=== PATIENT | male | born 1975 | race Caucasian/White ===

== ENCOUNTER 2018-12-21 19:09 | Emergency (ER) | payer BC ==
[~2018-12-21] VITALS: Ht 170.2 cm; Wt 100.0 kg
[~2018-12-21 19:09] MED LIST: NORCO 325 MG-51 TAB PO; PRILOTC PO; PROAIR HFA0.09 MG/AC IH; ZOFRAN 4MG T4 MG/TAB PO
[2018-12-21 19:25] VITALS: TEMP 99.6
[2018-12-21] MEDS ORDERED: NORCO 325 MG-51 TAB PO (22:20)
[2018-12-21] MEDS ORDERED: CRUTCHES MC (22:29)
[2018-12-21 23:06] VITALS: BP 125/89; PULSE 88
== END 2018-12-21 23:06 | disposition home or self-care (01) ==
LOC: COL.ER 19:09
DX: S92.232A Displaced fracture of intermediate cuneiform of left foot, initial encounter for closed fracture (principal); S92.222A Displaced fracture of lateral cuneiform of left foot, initial encounter for closed fracture; S92.212A Displaced fracture of cuboid bone of left foot, initial encounter for closed fracture; S92.342A Displaced fracture of fourth metatarsal bone, left foot, initial encounter for closed fracture; W55.29XA Other contact with cow, initial encounter; Y92.73 Farm field as the place of occurrence of the external cause
CPT/HCPCS: Q4041

== ENCOUNTER 2020-01-17 11:02 | Inpatient (IN) | payer BC ==
[~2020-01-17] VITALS: Ht 170.2 cm; Wt 88.9 kg
[~2020-01-17 11:02] MED LIST changes: +CRUTCHES MC; +MUCINEX 60600 MG/TA1 PO; +TESSALON P100 MG/CAP PO; +ZITHROMAX 250M250 MG PO
[2020-01-17] MEDS ORDERED: ABSORBASE TOP (11:28)
[2020-01-17] MEDS ORDERED: TYLENOL 325MG325 MG PO (11:33)
[2020-01-17] MEDS ORDERED: ELIQUIS 5MG PO ×2 (11:33→11:34)
[2020-01-17] MEDS ORDERED: BUSPAR5 MG PO (11:35)
[2020-01-17] MEDS ORDERED: DULCOLAX STOOL100 MG PO ×2 (11:36→11:37)
[2020-01-17] MEDS ORDERED: MUCINEX 60600 MG/TA1 PO (11:38)
[2020-01-17] MEDS ORDERED: ATROVENT I0.2 MG/1 M IH (11:39)
[2020-01-17] MEDS ORDERED: MELATONIN3 M1 PO (11:40)
[2020-01-17] MEDS ORDERED: PROTONIX 40MG T40 MG PO (11:41)
[2020-01-17 16:51] VITALS: BP 122/84; PULSE 104; TEMP 98.8
[2020-01-17 18:00] VITALS: BP 122/84; PULSE 104; TEMP 98.8
--- NOTE | 2020-01-17 19:50 | NUR ---
bedside shift report received from BRENNON Puente
--- NOTE | 2020-01-17 20:37 | NUR ---
Patient arrived to [facility] approximatly 1:30 PM, but stayed outside to talk to family before entering the hospital. Patient was admitted to Room 335 at 1500. Patient currently resting in bed at this time, call light in reach and bed alarm set.
--- NOTE | 2020-01-17 21:15 | NUR ---
watching TV, is very talkative and states he is very bored and is ready to be home with his family, listened and spoke with and tried to be encouraging, full assessment completed, see interventions for further info, trach in place with dressing, PEG tube in place with some dried blood around stoma, denies pain or needs, refuses buspar
--- NOTE | 2020-01-17 22:20 | NUR ---
in bed with lights on but appears to be sleeping, resp quiet and easy
--- NOTE | 2020-01-17 23:20 | NUR ---
continues to appear to sleep
--- NOTE | 2020-01-18 00:25 | NUR ---
shift report given to BRENNON Stone
[2020-01-18 05:27] VITALS: BP 120/86; PULSE 96; TEMP 97.7
--- NOTE | 2020-01-18 09:25 | NUR ---
PATIENT RETURNS FROM PT THIS MORNING AND ASSESSMENT COMPLETED. HE DENIES ANY NEED FOR PAIN MEDICATIONS. HE DOES HAVE SOME NOTICABLE HAND TREMORS. HE IS VERY TALKATIVE. IS SLIGHTLY SHORT OF BREATH WITH ACTIVITY AND SOME WITH TALKING.
--- NOTE | 2020-01-18 15:14 | NUR ---
TRACH TUBE REMOVED BY PHYS PRIOR TO RT ARRIVAL. PT AWAKE, ALERT AND SPEAKING TO AND FAMILY ON THE PHONE. O2 ON @ 2 LPM NC.
--- NOTE | 2020-01-18 16:00 | NUR ---
PATIENT IS VERY EXCITED ABOUT HAVING TRACHE REMOVED. GAUZE AND TAPE WAS APPLIED OVER THE TRACHE SITE. DENIES ANY PAIN OR NEEDS AT THIS TIME.
[2020-01-18 17:27] VITALS: BP 128/88; PULSE 98; TEMP 98.5
--- NOTE | 2020-01-18 19:56 | NUR ---
IN TO ASSESS PATIENT AND HE DECLINED HIS BUSPAR. TRACH SITE DRESSING WAS CHANGED. WHOLE IS ABOUT A SIZE OF A SMASHED DIME AND THE DRAINAGE WAS YELLOW/MUCOUS COLORED AND ABOUT A QUARTER IN SIZE.
--- NOTE | 2020-01-19 05:24 | NUR ---
PATIENT HAD A COUPLE OF PHONE CALLS FROM FAMILY MEMBERS AT HS TIME. NO ABNORMAL FINDINGS WERE NOTED ON ASSESSMENT. TRACH DRESSING WAS CHANGED WITH A QUARTER SIZE AMOUNT OF YELLOW/GREEN/MUCOUS DRAINAGE NOTED ON THE OLD DRESSING. A NEW DRESSING WAS APPLIED. PATIENT WENT UP TO THE BATHROOM AND THEN WENT TO WENT. PATIENT HAS BEEN OBERSEVERED SEVERAL TIMES DURING THE NIGHT SLEEPING IN HIS BED. PATIENT DENIES ANY OTHER NEEDS AT THIS TIME. WILL REPORT OFF TO DAY SHIFT UPON THEIR ARRIVAL
[2020-01-19 05:43] VITALS: BP 103/63; PULSE 93; TEMP 97.9
--- NOTE | 2020-01-19 06:57 | NUR ---
resting in bed, bedside shift report received from BRENNON Maldonado
--- NOTE | 2020-01-19 08:24 | NUR ---
up in WC watching TV, full assessment completed, see interventions for further info, assisted over to recliner, denies needs
--- NOTE | 2020-01-19 10:00 | NUR ---
dressing removed from trach site, small amount yellowish drainage on gauze, skin cleansed with normal saline and new gauze placed and held in place with paper tape,
--- NOTE | 2020-01-19 14:21 | NUR ---
SW met with patient in doorway of patient's room to [facility]. Patient que resides in [facility] with his Abida [phone] as care support, and EMR. PAtient also reported his as DPOA. Patient reports that he does not currently utilize DME, and that his PCP is Dr. Mancera, with no upcoming appointments. Patient reports that he gets his medications from [facility] in [place] with no concerns. Patient declined home health services at this time, however indicated that he may need oxygen. SW discussed situation with nurse, and determine this had not been addressed. SW will continue to follow.
--- NOTE | 2020-01-19 17:18 | NUR ---
has been up in recliner and in bed throughtout the day, up to bathroom and voids qs, has denied needs throughout the day
[2020-01-19 17:42] VITALS: BP 125/85; PULSE 109; TEMP 98.7
--- NOTE | 2020-01-19 18:40 | NUR ---
Pt REPORT RECEIVED AT BEDSIDE FROM MENDEZ WILLETT. Pt HAS CALL LIGHT WITHIN REACH AND DENIES PAIN OR WANTS/NEEDS AT THIS TIME. WILL CONTINUE TO MONITOR.
--- NOTE | 2020-01-19 18:45 | NUR ---
bedside shift report given to BRENNON Downey
--- NOTE | 2020-01-19 23:09 | NUR ---
Pt has spent the evening resting in bed and communicating with his friends and family via [facility], as well as watching tv in between calls. Pt is A&Ox4 and is able to express his wants/needs without difficulty. Pt is independent in his room and performs all personal care and transfers independantly. Call light is within Pt reach and there are beverages and personal items within reach on the bedside table. Pt has been cooperative with care and compliant with medications except for his Buspar which he refused even after education provided regarding it's use. Pt remains in stable condition at this time with no s/s of distress noted. Pt dressing to his anterior neck is CDI and the skin around his G-tube site is noted as CDI with no redness, drainage, or excoriation. Will continue to monitor.
--- NOTE | 2020-01-20 02:43 | NUR ---
Pt is currently resting in bed with eyes closed and no s/s of distress noted. Call light is at Pt side. Pt has been resting peacefully since HS and remains compliant with use of call light with one episode of using call light to notify this engineering writer that he needed to use the restroom to void. Will continue to monitor.
[2020-01-20 05:06] VITALS: BP 133/88; PULSE 105; TEMP 97.4
[2020-01-20 06:58] LABS: ALBUMIN 3.9 gm/dL (3.5-5.0); BILIRUBIN,TOTAL 0.4 mg/dL (0.0-1.0); CALCIUM 9.3 mg/dL (8.4-10.2); CREATININE, serum 0.63 (0.66-1.25); MAGNESIUM 1.9 mg/dL (1.6-2.3); POTASSIUM 3.9 mmol/L (3.4-5.0); TOTAL PROTEIN 6.9 gm/dL (6.4-8.2)
[2020-01-20 07:00] LABS: BASO % 0.4 % (0.0-2.0); EOS # 0.1 (0.0-0.7); EOS % 1.7 % (0-4.0); GRAN # 4.9 (1.4-6.5); GRAN % 63.4 % (42.2-75.2); HEMOGLOBIN 11.6 g/dl (13.5-18.0); LYMPH # 2.2 (1.2-3.4); LYMPH % 28.5 % (20.0-51.0); MEAN CELL VOLUME 89 fl (80.0-100.0); MEAN CORPUSCULAR HEMOGLOBIN 29 pg (27.0-31.0); MEAN CORPUSCULAR HGB CONC 33 g/dl (33.0-37.0); MEAN PLATELET VOLUME 9.8 fl (7.4-10.4); MONO # 0.4 (0.1-0.6); MONO % 5.5 % (1.7-9.3); PLATELET COUNT 282 K/mm3 (130-400); RED BLOOD COUNT 3.96 M/mm3 (4.20-5.60); REDCELL DISTRIBUTION WIDTH-CV 14.4 % (11.5-14.5)
[2020-01-20 07:09] LABS: HEMATOCRIT 35.4 % (42.0-52.0)
--- NOTE | 2020-01-20 09:23 | NUR ---
PATIENT IS UP IN THE WHEELCHAIR ATTENDING TO PERSONAL HYGIENE AT THE SINK THIS MORNING. PATIENT IS A&OX4. VSS. BOWEL SOUNDS ACTIVE ALL FOUR QUADRANTS. PATIENT PASSING FLATUS. PEG TUBE TO ABDOMEN CLAMPED. SKIN CD&I AROUND PEG TUBE SITE. OLD TRACH SITE ON NECK DRESSED WITH A GAUZE AND TAPE DRESSING AND IS CD&I. ALL LUNG PEREZ CLEAR UPON AUSCULTATION. PATIENT STATES THAT HE FEELS SOB ALL THE TIME BUT THAT IT IS WORSE WITH ACTIVITY. 02 AT 2L VIA NASAL CANNULA IN PLACE. POSITIVE PEDAL PULSES EQUAL BILATERALLY. PATIENT DENIES PAIN THIS MORNING. NO NEEDS AT THIS TIME.
--- NOTE | 2020-01-20 12:27 | NUR ---
PATIENTS OLD TRACH SITE ON NECK EDGES WELL APPROXIMATED. COVERED WITH GAUZE AND PAPER TAPE DRESSING. PATIENT DENIES PAIN. NO OTHER NEEDS AT THIS TIME.
--- NOTE | 2020-01-20 13:16 | NUR ---
Admission QIM scores were reviewed by the team. Code of 3 for toilet transfers was determined by team discussion to be the most usual performance before interventions for this patient during the assessment period.--PD Demi
--- NOTE | 2020-01-20 13:51 | NUR ---
PATIENTS PEG TUBE FLUSHED WITH 70 MLS OF WARM WATER. PATIENT TOLERATED WELL. NO NEEDS AT THIS TIME.
[2020-01-20 17:04] VITALS: BP 117/91; PULSE 105; TEMP 99
--- NOTE | 2020-01-20 18:35 | NUR ---
REPORT GIVEN TO BRENNON YANEZ.
--- NOTE | 2020-01-20 20:42 | NUR ---
PT IN RECLINER AND DENIES ANY PAIN OR DISCOMFORT AT THIS TIME. DRSG TO NECK CHANGED, INCISION HAD NO DRAINAGE. PT ADVISES THAT HE DID NOT WANT BURSPAR. PT STILL ON 2L/NC AND RESP EVEN AND UNLABORED. CALL LIGHT WITHIN REACH.
--- NOTE | 2020-01-21 04:08 | NUR ---
PT INDEPENDENT IN ROOM. PT WENT TO SLEEP ABOUT 2300 AND HAS BEEN SLEEPING/RESTING WELL SINCE THEN. NO CHANGES OR ISSUES NOTED. CALL LIGHT WITHIN REACH.
[2020-01-21 04:43] VITALS: BP 118/83; PULSE 90; TEMP 98.2
--- NOTE | 2020-01-21 09:44 | NUR ---
Patient attending therapy at this time. Patient very shaky still when standing for very long. Very shaky when trying to write with right hand. Patient refused pain meds this morning, but did agree to take some following his therapies today.
--- NOTE | 2020-01-21 13:30 | NUR ---
Contacted pt's , [place]. Informed her that we have permission to do a family visit tomorrow. Asked her if 1:00 pm would work for them, which she said it would. Inquired about face masks, which they have their own. Told her once she arrives we will take her & the kids to the courtyard & will bring [place] down for them to visit there. She was very pleased w/ this. Told her we would still do the Family Meeting at 1:45 pm as the team would come to the courtyard where they are. She again was fine w/ this plan.
[2020-01-21 15:54] VITALS: BP 121/81; PULSE 109; TEMP 98.7
--- NOTE | 2020-01-21 19:30 | NUR ---
Patient resting in recliner at this time. He is independent in his room. Patient attended all therapies today. Discussed discharge planning with patient and all follow up appointments have been made. Exercise Oximetry has been scheduled for afternoon. Patient had a shower today and dressing to old trache site was cleaned patted dry and secured with sterile gauze and paper tape. No open areas were observed today. Peg tube had some scant brown drainage and area was cleansed with normal saline and patted dry. See new order for 30 ml flush to peg tube BID instead of 60 ml per patient request. Peg tube flushes well. Patient denied any questions at this time. Reported off to night nurse.
--- NOTE | 2020-01-21 21:25 | NUR ---
PATIENT DOING WELL TONIGHT. DENIES PAIN. TRACHE SITE CDI. PEG TUBE CDI WITH NO DRESSING. TOOK SCHEDULED MEDICATIONS WITHOUT ISSUE. REFUSED BUSPAR. DENIES ANY OTHER NEEDS, WILL CONTINUE TO MONITOR. CALL LIGHT IN REACH.
[2020-01-22 05:42] VITALS: BP 124/84; PULSE 91; TEMP 98.4
--- NOTE | 2020-01-22 10:58 | NUR ---
YOLANDA met with the patient to discuss outpatient physical therapy options. SW provided a list of [place] facilities that provide outpatient PT and discussed the [facility] in [place]. The patient would like to discuss options with his . Will continue to follow.
[2020-01-22 15:51] VITALS: BP 123/70; PULSE 124; TEMP 98.8
--- NOTE | 2020-01-22 16:44 | NUR ---
YOLANDA met with the patient and provided the Team Conference notes. The patient will have a decision about where he wants to do his outpatient physical therapy with an [facility] and will advise YOLANDA which one tomorrow, 01/21. All questions and concerns were addressed. Will continue to follow.
--- NOTE | 2020-01-22 20:45 | NUR ---
Patient attended all therapies today. Denied pain this shift. Tolerated diet well. Appointment was made for ENT today and has been set for 02/12/20 at 8:[address] Su. This nurse called and left a message for [facility] and they will return the call tomorrow. At that time patient will need to have the Sleep Study set up. Dr. Gutiérrez has requested a copy of the Echo results from [facility] be faxed to us. This nurse reported off to the night nurse to have the day nurse take care of this tomorrow. Patient had his peg tube flushed this morning and patient reported that he is aware of how to flush his peg tube himself. Scant brown drainage was found around peg tube site. Trache dressing is Clean Dry and Intact. Patient in a pleasent mood this evening following his time with family this afternoon. He is currently resting in bed, independent in his room and denies questions at this time.
--- NOTE | 2020-01-22 22:39 | NUR ---
PATIENT DOING WELL TONIGHT. ALERT AND ORIENTED. DENIES PAIN. TOOK SCHEDULED MEDICATIONS WITHOUT ISSUE, REFUSED BUSPAR. TRACH DRESSING CDI. THIS NURSE OBSERVED PATIENT FLUSH PEG TUBE BY HIMSELF CORRECTLY. SCANT AMOUNT OF BROWN DRAINAGE NOTED AROUND PEG TUBE SITE, THIS WAS CLEANED BY THIS NURSE WITH GUAZE AND STERILE WATER. NO FURTHER NEEDS AT THIS TIME, PATIENT CURRENTLY RESTING IN BED, CALL LIGHT WITHIN REACH. WILL CONTINUE TO MONITOR.
[2020-01-23 03:46] VITALS: BP 104/71; PULSE 100; TEMP 98
--- NOTE | 2020-01-23 07:40 | NUR ---
PATIENT IS DROWSY THIS MORNING BUT A&OX4. TACHYCARDIA NOTED, VSS. PATIENT STATES THAT HE FEELS SOB ALL THE TIME BUT THAT IT IS WORSE WITH ACTIVITY. BOWEL SOUNDS ACTIVE ALL FOUR QUADRANTS. PATIENT TOLERATING DIET WITHOUT COMPLAINTS OF N/V. PEG TUBE TO ABDOMEN CLAMPED. PEG TUBE FLUSHED WITH 30 MLS OF WARM WATER. PATIENT TOLERATED WELL. OLD TRACH SITE INCISION TO NECK JOSE WITH SCANT DRIED DRAINAGE PRESENT ON NECK. EDGES WELL APPROXIMATED. PATIENT DENIES ANY PAIN. CALL LIGHT WITHIN REACH. NO OTHER NEEDS AT THIS TIME.
--- NOTE | 2020-01-23 16:22 | NUR ---
YOLANDA met with the patient regarding outpatient PT and he states he would like to stay with an [facility] but has not yet chosen. Will follow up with his choice tomorrow 01/22. The patient had a RT Exercise Oximetry and he is requiring oxygen. YOLANDA faxed order to [facility]. YOLANDA will continue to follow.
[2020-01-23 18:02] VITALS: BP 126/67; PULSE 117; TEMP 98.7
--- NOTE | 2020-01-23 18:45 | NUR ---
REPORT GIVEN TO BRENNON TALLEY.
--- NOTE | 2020-01-23 19:15 | NUR ---
PER NURSE REPORT, LAST HAD BM ON 01/21.
--- NOTE | 2020-01-23 19:15 | NUR ---
PATIENT UP IN CHAIR DURING CHANGE OF SHIFT REPORT FROM DAY SHIFT NURSEVERONICA. PATIENT UP INDEPENDENTLY IN ROOM WITH NO PROBLEMS.
--- NOTE | 2020-01-23 20:00 | NUR ---
PATIENT UP IN ROOM INDEPENDENTLY. AMBULATES WITH NO PROBLEMS, HAS OXYGEN PER NASAL CANNULA CONTINUOUSLY WITH O2 AT 3L WITH EXERTION. PEG TUBE INTACT TO LEFT ABD, PLUGGED. PATIENT DENIES ANY NEEDS.
--- NOTE | 2020-01-24 02:41 | NUR ---
PATIENT SLEEPING, DOES NOT AWAKEN WHEN ROOM ENTERED. PATIENT UP IN ROOM INDEPENDENTLY WITH NO PROBLEMS THIS SHIFT.
[2020-01-24 05:48] VITALS: BP 103/65; PULSE 87; TEMP 98.3
--- NOTE | 2020-01-24 07:30 | NUR ---
PATIENT RESTING IN BED DURING CHANGE OF SHIFT REPORT GIVEN TO DAY SHIFT NURSE, GISSELL. PATIENT CONTINUES TO BE UP INDEPENDENTLY IN ROOM WITH NO PROBLEMS.
--- NOTE | 2020-01-24 08:25 | NUR ---
PT AWAKE AND WATHCHING TV. ALL ASSESSMENTS WNL, VSS, PT DENIES NEEDS AT THIS TIME.
[2020-01-24] MEDS ORDERED: PROAIR HFA0.09 MG/AC IH (08:43)
[2020-01-24] MEDS ORDERED: BUSPAR5 MG PO (08:44)
--- NOTE | 2020-01-24 09:30 | NUR ---
called [facility] pharmacy for RX not e-filed. Reviewed discharge instructions with pt. Questions answered.
--- NOTE | 2020-01-24 10:27 | NUR ---
The patient is to discharge home with family support today, 01/23. [place] [facility] to have oxygen delivered prior to discharge. The patient stated he does not want to do outpatient physical therapy at this time. He will work on exercises at home. He states he will set up outpatient physical therapy for himself at a later time. There are no additional needs at this time.
--- NOTE | 2020-01-24 11:51 | NUR ---
reviewed final discharge information, o2 delivered. Pt taken to ED exit.
== END 2020-01-24 11:52 | disposition home or self-care (01) | DRG 947 ==
PROVIDERS: ADMIT Internal Medicine
DX: R53.81 Other malaise (principal); J96.01 Acute respiratory failure with hypoxia; E44.0 Moderate protein-calorie malnutrition; G72.9 Myopathy, unspecified; K21.9 Gastro-esophageal reflux disease without esophagitis; J45.909 Unspecified asthma, uncomplicated; Z68.33 Body mass index [BMI] 33.0-33.9, adult; Z79.01 Long term (current) use of anticoagulants; Z79.1 Long term (current) use of non-steroidal anti-inflammatories (NSAID); Z88.1 Allergy status to other antibiotic agents; Z93.0 Tracheostomy status; Z93.1 Gastrostomy status
CPT/HCPCS: 99222-AI; 99231-AI; 99232-AI; 99239

== ENCOUNTER → 2020-05-06 | Outpatient (CLI) | payer BC ==
[~2020-05-06] MED LIST changes: +ABSORBASE TOP; +ATROVENT I0.2 MG/1 M IH; +BUSPAR5 MG PO; +DULCOLAX STOOL100 MG PO; +ELIQUIS 5MG PO; +MELATONIN3 M1 PO; +PROTONIX 40MG T40 MG PO; +TYLENOL 325MG325 MG PO
== END ==
LOC: COL.VAS 12:50
DX: Z86.718 Personal history of other venous thrombosis and embolism (principal)

== ENCOUNTER 2020-05-22 10:25 | Outpatient (CLI) | payer BC ==
[~2020-05-22] VITALS: Ht 170.2 cm; Wt 102.3 kg
[2020-05-22] VITALS (7 sets, daily range): BP systolic 109–132; BP diastolic 78–96; PULSE 87–92; TEMP 98.4
[2020-05-22] MEDS ORDERED: BENADRYL50 MG PO (10:49)
[2020-05-22] MEDS ORDERED: HAIRSKINNAILS PO (10:50)
[2020-05-22] MEDS ORDERED: PRILOSEC 20MG20 MG PO (10:50)
[2020-05-22] MEDS ORDERED: CLARITIN 1010 MG/TAB PO (10:51)
[2020-05-22] MEDS ORDERED: BREO IH (10:52)
--- NOTE | 2020-05-22 12:57 | NUR ---
SEE MERGE DOCUMENTATION FOR MEDICATION ADMINISTRATION TIMES AND INTRA/POST PROCEDURE SEDATION ASSESSMENTS.
--- NOTE | 2020-05-22 14:50 | NUR ---
Dr. Li has released pt to DC home. DC instructions reviewed, and pt expresses understanding. IV DC'd with catheter intact, bleeding controlled at site. Pt's will be transporting him home. He is steady in room prior to DC.
== END 2020-05-22 14:56 | disposition home or self-care (01) ==
LOC: COL.CAR 10:25
DX: Z86.718 Personal history of other venous thrombosis and embolism (principal); Z86.711 Personal history of pulmonary embolism; Z88.1 Allergy status to other antibiotic agents
CPT/HCPCS: J1644; J2250; J3010; J7120; Q9967

== ENCOUNTER → 2021-05-27 | Outpatient (CLI) | payer BC ==
[~2021-05-27] MED LIST changes: +BENADRYL50 MG PO; +BREO IH; +CLARITIN 1010 MG/TAB PO; +HAIRSKINNAILS PO; +PRILOSEC 20MG20 MG PO
== END ==
LOC: COL.VAS 05-10 13:15
DX: R06.02 Shortness of breath (principal)

== ENCOUNTER → 2022-01-05 | Outpatient (CLI) | payer BC | LOC: DIA.ED 10:02 | DX: E11.65 Type 2 diabetes mellitus with hyperglycemia (principal); Z79.84 Long term (current) use of oral hypoglycemic drugs; E78.5 Hyperlipidemia, unspecified | CPT/HCPCS: G0108 ==